=== PATIENT | male | born 1945 | race Caucasian/White ===

== ENCOUNTER 2018-02-02 12:00 | Day surgery (SDC) | payer OTHER, MEDICARE ==
[2018-02-02] MEDS ORDERED: FENTAnyl 50 MCG/ML VIAL (14:12)
[2018-02-02] MEDS ORDERED: MIDAZOLAM 1 MG/ML 2 ML INJ ×2 (14:13)
== END 2018-02-02 16:12 | disposition home or self-care (01) ==
LOC: GIL 12:00
DX: K92.1 Melena (principal); E11.9 Type 2 diabetes mellitus without complications; I10 Essential (primary) hypertension; E78.00 Pure hypercholesterolemia, unspecified
CPT/HCPCS: 45380; 82962; 88305